=== PATIENT | female | born 2000 | race Caucasian/White ===

== ENCOUNTER 2018-09-15 13:24 | Emergency (ER) | payer OTHER ==
[2018-09-15] MEDS ORDERED: LET GEL TOPICAL 1 EA SYR TP ONE (13:38)
--- NOTE | 2018-09-15 14:32 | EDPHY ---
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 The incident occurred shortly prior to arrival. She came in by private vehicle for evaluation and treatment. ROS: Neuro: She denies any numbness or tingling for the wound Musculoskeletal: No bony pain or difficulty moving the affected thumb point review of symptoms is performed and otherwise negative with exception of pertinent positives and negatives listed in HPI and ROS Smoking Status: Current some day smoker Physical Exam: Physical Exam Vital signs are normal. General: No acute distress HEENT: Atraumatic. Eyes: Pupils equal and react to light. Extraocular motions are intact. Lungs: No respiratory distress. Cardiac: Brisk capillary refill is intact throughout. Pulses are 2+ and symmetric in the affected extremity Skin: No rash or pallor. Extremities: Atraumatic normal except for left hand examination is notable for 3.3 cm laceration to the proximal hand dorsal thenar region with subcutaneous tissue exposed but no deeper structures injured including no evidence of tendon injury and direct examination and no foreign bodies appreciated. Left hand: Neuro: Alert with no sensorimotor deficits in the affected thumb. Constitutional: Initial Vital Signs Temperature (C) 37 C 09/15/18 13:28 Heart Rate 91 09/15/18 13:28 Respiratory Rate 16 09/15/18 13:28 Blood Pressure 134/87 H 09/15/18 13:28 O2 Sat (%) 97 09/15/18 13:28 Allergies/Adverse Reactions: No Known Allergies Allergy (Unverified 09/15/18 13:34) Home Medications: Medication Instructions Recorded NK [No Known Home Meds] 09/15/18 MDM/Departure - MDM Procedures: The wound is 3.3 cm full-thickness described physical exam. The wound was copiously irrigated with saline. The wound was explored for foreign bodies and none were found. The wound was prepped and draped in the normal sterile fashion. The wound was anesthetized using 50 50 mix of 0.5% Marcaine and 1% plain lidocaine-4 mL with affecting 27 gauge needle. The edges were reapproximated using minor running sutures in 3 interrupted interposed sutures using 4 0 Ethilon with good hemostasis and cosmesis. The patient tolerated the procedure well. There were no complications. Medications Given: Discontinued Medications Tetracaine/Epinephrine/Lidocaine (Let Gel Topical) 1 ea TP EDNOW ONE Stop: 09/15/18 13:39 Last Admin: 09/15/18 13:41 Dose: 1 ea ED Course/Re-evaluation: Discussion: Hand laceration without evidence of neurovascular injury, tendon injury or other complicating factors. - Depart Disposition: Home, Routine, Self-Care Clinical Impression: Hand laceration Qualifiers: Encounter type: initial encounter Foreign body presence: without foreign body Laterality: left Qualified Code(s): S61.412A - Laceration without foreign body of left hand, initial encounter Condition: Good Instructions: Laceration (ED) Additional Instructions: Diagnosis: Hand laceration Plan: No use of the left hand for the next 2 days. Then removed the dressing in use as tolerated at work thereafter. Return suture removal in 10-12 days Return sooner for redness, discharge or other concerns for infection Ibuprofen Tylenol as needed for pain control. Stand Alone Forms: Work Excuse, Work Limited Duty Referrals: NONE *PRIMARY CARE P,. [Primary Care Provider] - As per Instructions Claudine Moore MD [place] [place] - As per Instructions
[2018-09-15 15:23] VITALS: BP 127/72
== END 2018-09-15 15:20 | disposition home or self-care (01) ==
LOC: CED 13:24
PROC: 0HQGXZZ Repair Left Hand Skin, External Approach (ICD-10-PCS; principal; 2018-09-15)
DX: S61.412A Laceration without foreign body of left hand, initial encounter (principal); X58.XXXA Exposure to other specified factors, initial encounter; Y99.0 Civilian activity done for income or pay